=== PATIENT | female | born 1955 | race Caucasian/White ===

== ENCOUNTER → 2017-04-06 | Outpatient (CLI) | payer BC ==
[~2017-04-06] MED LIST: ASPI325T PO; BUDE10.2 PO; BUPR150T3 PO; CARV6.252 PO; FLUT1DIS30 INH; HYDR12.54 PO; HYDR2TAB7 PO; NICO1PAT16 TD; PRAM0.253 PO; ROSU10TA PO; TRAZ-173 PO
--- NOTE | 2017-04-06 11:40 | DI ---
Indication: ITS.REASON: F17.290 NICOTINE DEPENDENCE, OTHER TOBACCO PRODUCT PROCEDURE: CT LUNG SCREENING: Encounter: Initial Comparison: CT thoracic spine dated November 16, 2015 Technique: Axial noncontrast CT imaging of the chest was performed on a [employer] Aquilion Prime [address] scanner using an ACR approved low dose lung cancer screening protocol. 1 mm thick axial slices were obtained with coronal and sagittal two-dimensional reformats. Automated Exposure Control and Iterative Reconstruction dose lowering techniques were utilized. Dose (DLP): 88.6 mGy.cm Prerequisites: This exam was performed in a facility that meets the criteria for the LDCT screening program. Data regarding this exam was submitted to an approved registry. The order for this exam indicates that it came as a result of a lung cancer screening counseling and shared decision-making visit that included all of the elements required of such a visit. The radiologist interpreting this exam meets the [facility] criteria for the LDCT lung cancer screening program. Standardized reporting is followed using the ACR Lung-RADS nomenclature and is extracted using a [employer] reporting system. Findings: Subpleural 4 mm right lower lobe pulmonary nodule on axial image #220. This appears solid. Triangular nodule along the anterior aspect of the minor fissure seen on axial image #145 measuring 5 mm in size probably representing an intrapulmonary lymph node. There is a 3 mm subpleural tag noted in the right middle lobe as well. There is an additional probable intrapulmonary lymph node along the more lateral and superior aspect of the minor fissure on coronal image #61 measuring 4 mm in size. Tiny 3 mm subpleural tag in the left lower lobe on axial image #235. No additional pulmonary nodules or masses appreciated. No consolidative pneumonia. No pleural effusion or pneumothorax. The central airways are patent without bronchial wall thickening. No axillary or mediastinal adenopathy. Heart size is normal. No pericardial effusion. Coronary artery disease. The upper abdomen shows no acute findings. Impression: Small bilateral pulmonary nodules with the largest measuring 5 mm. This patient falls into the Lung RADS category 2. Recommend continued annual low dose lung cancer CT screening in 12 months. .
== END ==
LOC: IMA 08:24
PROVIDERS: ATTEND Family Medicine
DX: F17.290 Nicotine dependence, other tobacco product, uncomplicated (principal); R91.8 Other nonspecific abnormal finding of lung field